=== PATIENT | male | born 1955 | race Caucasian/White ===

== ENCOUNTER 2021-05-09 17:31 | Emergency (ER) | payer BC, OTHER ==
[~2021-05-09] VITALS: Ht 170.2 cm; Wt 72.6 kg
[2021-05-09] MEDS ORDERED: SODIUM CHLORIDE 0.9% 1,000 ML IV ONE ×2 (19:15→21:30)
[2021-05-09] MEDS ORDERED: diphenhdrAMINE HCL 50 MG/1 ML VL IV ONE (19:15)
[2021-05-09] MEDS ORDERED: ACETAMINOPHEN 500 MG TAB PO ONE (19:15)
[2021-05-09] MEDS ORDERED: traMADol HCL 50 MG TAB PO ONE (19:15)
[2021-05-09] MEDS ORDERED: ONDANSETRON HCL 4 MG/2 ML VIAL IV ONE (19:15)
[2021-05-09] MEDS ORDERED: FAMOTIDINE (10MG/ML) 2ML VL IV ONE (19:15)
[2021-05-09 19:32] LABS: Basophils # (auto) 0 10 ^3/uL (0-0.2); Basophils % (auto) 0.3 % (0.0-2.0); Eosinophils # (auto) 0.1 10 ^3/uL (0-0.8); Eosinophils % (auto) 0.5 % (0.0-7.0); Hematocrit 46.2 % (41.0-53.0); Hemoglobin 16.3 g/dL (13.5-17.5); Lymphocytes # (auto) 2.8 10 ^3/uL (0.4-5.4); Lymphocytes % (auto) 22.2 % (10.0-50.0); Mean Corpuscular Hemoglobin 32.4 pg (28.0-32.0); Mean Corpuscular Hgb Conc. 35.3 g/dL (32.0-36.0); Monocytes # (auto) 1.1 10 ^3/uL (0-1.3); Monocytes % (auto) 8.9 % (0.0-12.0); Neutrophils # (auto) 8.5 10 ^3/uL (1.6-8.6); Neutrophils % (auto) 68.1 % (37.0-80.0); Nucleated Red Blood Cells % 0.5 %; Platelet Count (auto) 193 10^3/uL (140-450); Red Blood Cells 5.03 10^6/uL (4.5-5.90); Red Cell Distribution Width 13.3 % (11.8-14.3); White Blood Cell 12.5 10^3/uL (4.4-10.8)
[2021-05-09 19:48] LABS: Calcium 8.9 mg/dL (8.5-10.1); Magnesium 2.5 mg/dL (1.6-2.6); Potassium 4.5 mmol/L (3.5-5.1)
[2021-05-09 19:52] LABS: Bilirubin, Total 1.6 mg/dL (0.2-1.0); Total Protein 8.2 g/dL (6.4-8.2)
[2021-05-09 19:54] LABS: BUN/Creatinine Ratio 12.5
[2021-05-09] MEDS ORDERED: IOHEXOL 300 MG/ML 100ML BOTTLE IJ ONE (21:15)
[2021-05-09 22:13] LABS: Urine WBC None Seen /hpf (0 - 3)
[2021-05-09 22:26] LABS: Urine Bacteria NONE SEEN /hpf (None Seen); Urine Blood Negative /uL (Negative); Urine Specific Gravity 1.008 (1.001-1.035)
[2021-05-10] MEDS ORDERED: cefTRIAXone 1GM/50ML D5W 50 ML IV ONE (02:00)
[2021-05-10] MEDS ORDERED: diphenhdrAMINE HCL 50 MG/1 ML VL IV ONE (02:15)
[2021-05-10] MEDS ORDERED: traMADol HCL 50 MG TAB PO ONE (02:15)
[2021-05-10 02:29] VITALS: BP 120/81
== END 2021-05-10 02:45 | disposition short-term general hospital (02) ==
LOC: EDBD 17:31 → ER 17:31
DX: K35.80 Unspecified acute appendicitis (principal); K85.90 Acute pancreatitis without necrosis or infection, unspecified; J44.9 Chronic obstructive pulmonary disease, unspecified; E78.5 Hyperlipidemia, unspecified; I10 Essential (primary) hypertension; Z86.73 Personal history of transient ischemic attack (TIA), and cerebral infarction without residual deficits; Z88.8 Allergy status to other drugs, medicaments and biological substances
CPT/HCPCS: 36415; 74177; 80053; 81001; 83605; 83690; 83735; 84478; 85025; 85049; 93005; 96361; 96365; 96375; 96376; 99285; J0696; J1200; J2405; J3490; J7030; Q9967

== ENCOUNTER 2024-06-19 09:37 | Inpatient (IN) | payer BC, MEDICARE ==
[~2024-06-19] VITALS: Ht 170.2 cm; Wt 100.0 kg
[2024-06-19] MEDS: MECLIZINE HCL 25 MG TAB PO ONE (10:59)
[2024-06-19] MEDS: SODIUM CHLORIDE 0.9% 500 ML IVB ONE (11:00)
[2024-06-19 11:10] VITALS: PULSE 66; RESP 14; O2SAT 95
[2024-06-19 11:12] LABS: Basophils # (auto) 0 10 ^3/uL (0-0.2); Basophils % (auto) 0.2 % (0.0-2.0); Eosinophils # (auto) 0 10 ^3/uL (0-0.8); Eosinophils % (auto) 0.5 % (0.0-7.0); Hematocrit 47.2 % (41.0-53.0); Hemoglobin 16.4 g/dL (13.5-17.5); Lymphocytes # (auto) 2.5 10 ^3/uL (0.4-5.4); Lymphocytes % (auto) 26.3 % (10.0-50.0); Mean Corpuscular Hemoglobin 32.6 pg (28.0-32.0); Mean Corpuscular Hgb Conc. 34.7 g/dL (32.0-36.0); Mean Corpuscular Volume 93.9 fL (80.0-100.0); Monocytes # (auto) 0.6 10 ^3/uL (0-1.3); Monocytes % (auto) 6.6 % (0.0-12.0); Neutrophils # (auto) 6.2 10 ^3/uL (1.6-8.6); Neutrophils % (auto) 66.4 % (37.0-80.0); Platelet Count (auto) 196 10^3/uL (140-450); Red Blood Cells 5.03 10^6/uL (4.5-5.90); Red Cell Distribution Width 13.4 % (11.8-14.3); White Blood Cell 9.3 10^3/uL (4.4-10.8)
[2024-06-19 11:21] LABS: Alanine Aminotransferase 29 U/L (7-40); Albumin 4.4 g/dL (3.2-4.8); Alkaline Phosphatase 73 U/L (46-116); Anion Gap 8 (5-15); Aspartate Aminotransferase 22 U/L (13-40); BUN/Creatinine Ratio 13.2 (10.0-20.0); Bilirubin, Total 0.8 mg/dL (0.2-1.0); Blood Urea Nitrogen 10 mg/dL (9-23); Calcium 9.5 mg/dL (8.7-10.4); Carbon Dioxide 21 mmol/L (20-30); Chloride 107 mmol/L (98-107); Glucose 183 mg/dL (74-106); Lipase 350 U/L (12-53); Sodium 136 mmol/L (136-145); Total Protein 7.1 g/dL (5.7-8.2)
[2024-06-19] MEDS: SODIUM CHLORIDE 0.9% 500 ML IV ONE (12:00)
[2024-06-19] MEDS: PIPERACILLIN-TAZO 4.5GM 100 ML IV ONE (13:01)
[2024-06-19 14:23] LABS: LDL Cholesterol 143 mg/dL (< 100); Triglycerides 137 mg/dL (< 150)
[2024-06-19 14:25] LABS: Cholesterol 211 mg/dL (< 200); HDL Cholesterol 52 mg/dL (40-59)
[2024-06-19 14:38] LABS: Urine Bacteria None Seen /hpf (None Seen)
[2024-06-19 14:41] LABS: INR 1.05 (0.9-1.15); Partial Thromboplastin Time 25.4 SEC (24.5-34.5); Prothrombin Time 11.1 sec (9.3-11.8)
[2024-06-19 14:45] LABS: Urine Blood Negative /uL (Negative); Urine Clarity Clear (Clear); Urine Color Light-Yellow (Yellow); Urine Mucus FEW (None Seen); Urine Protein, UAD Negative (Negative); Urine Specific Gravity 1.022 (1.001-1.035); Urine Urobilinogen Normal (Negative); Urine WBC 2 /hpf (0 - 3)
[2024-06-19] MEDS ORDERED: hydrALAZINE HCL 20 MG/ML VL IV PRN (14:45)
[2024-06-19 15:32] LABS: Amphetamine Screen, Urine Neg (NEGATIVE); Barbiturate Scree,Urine Neg (NEGATIVE); Benzodiazephine Screen, Urine Neg (NEGATIVE); Cocaine Screen, Urine Neg (NEGATIVE); Opiate Scree,Urine Neg (NEGATIVE); Phencyclidine Screen, Urine Neg (NEGATIVE)
[2024-06-19 15:33] LABS: Cannabinoid Screen, Urine Neg (NEGATIVE)
[2024-06-19] MEDS: hydrALAZINE HCL 20 MG/ML VL IV ONE (16:29)
[2024-06-19 20:00] VITALS: PULSE 68
[2024-06-19] MEDS ORDERED: NITROGLYCERIN 0.4 MG SL TAB SL PRN (21:30)
[2024-06-19] MEDS ORDERED: ONDANSETRON HCL 4 MG/2 ML VIAL IV PRN (21:30)
[2024-06-19 21:49] VITALS: BP 172/95; PULSE 70; RESP 16; TEMP 98.6; O2SAT 99
[2024-06-19] MEDS: MORPHINE SULFATE INJ 2 MG/ml SYRG IV PRN ×2 (23:29→23:40)
[2024-06-19] MEDS: diphenhdrAMINE HCL 25 MG CAP PO ONE (23:29)
[2024-06-19] MEDS: ATORVASTATIN 20 MG TAB PO SCH (23:31)
[2024-06-19] MEDS: SOD CHL 0.45% 1,000 ML IV ONE (23:32)
[2024-06-19] MEDS: ASPirin 325 MG TAB PO ONE (23:32)
[2024-06-20 00:15] VITALS: PULSE 74; RESP 18; O2SAT 97
[2024-06-20] MEDS: ALBUTEROL SULF 2.5 MG/0.5ML(0.5%) NEB SOLN NEB SCH (00:15)
[2024-06-20] MEDS: IPRATROPIUM BROM 0.5 MG/2.5ML INH SOL NEB SCH (00:15)
[2024-06-20 00:25] VITALS: PULSE 71; RESP 16; O2SAT 100
[2024-06-20 04:47] LABS: Basophils # (auto) 0.1 10 ^3/uL (0-0.2); Basophils % (auto) 0.6 % (0.0-2.0); Eosinophils # (auto) 0 10 ^3/uL (0-0.8); Eosinophils % (auto) 0.4 % (0.0-7.0); Hematocrit 44.8 % (41.0-53.0); Hemoglobin 15.3 g/dL (13.5-17.5); Lymphocytes # (auto) 2.5 10 ^3/uL (0.4-5.4); Lymphocytes % (auto) 20.3 % (10.0-50.0); Mean Corpuscular Hgb Conc. 34.3 g/dL (32.0-36.0); Mean Corpuscular Volume 93.5 fL (80.0-100.0); Monocytes # (auto) 0.8 10 ^3/uL (0-1.3); Monocytes % (auto) 6.3 % (0.0-12.0); Neutrophils # (auto) 8.8 10 ^3/uL (1.6-8.6); Neutrophils % (auto) 72.4 % (37.0-80.0); Platelet Count (auto) 173 10^3/uL (140-450); Red Blood Cells 4.79 10^6/uL (4.5-5.90); Red Cell Distribution Width 13.3 % (11.8-14.3); White Blood Cell 12.1 10^3/uL (4.4-10.8)
[2024-06-20 05:03] LABS: INR 1.06 (0.9-1.15); Prothrombin Time 11.2 sec (9.3-11.8)
[2024-06-20 05:10] LABS: Alanine Aminotransferase 27 U/L (7-40); Alkaline Phosphatase 71 U/L (46-116); Anion Gap 9 (5-15); Aspartate Aminotransferase 20 U/L (13-40); BUN/Creatinine Ratio 15.9 (10.0-20.0); Bilirubin, Total 0.7 mg/dL (0.2-1.0); Blood Urea Nitrogen 10 mg/dL (9-23); Carbon Dioxide 23 mmol/L (20-30); Chloride 105 mmol/L (98-107); Glucose 106 mg/dL (74-106); Potassium 3.7 mmol/L (3.5-5.1); Sodium 137 mmol/L (136-145); Total Protein 6.5 g/dL (5.7-8.2)
[2024-06-20 05:55] VITALS: PULSE 71; RESP 13; O2SAT 98
[2024-06-20 06:00] VITALS: PULSE 74; RESP 16; O2SAT 100
[2024-06-20] MEDS: diphenhdrAMINE HCL 12.5 MG/5 ML UD PO PRN (09:31)
[2024-06-20 11:09] LABS: COVID19 ANTIGEN SOFIA FIA NEGATIVE (NEGATIVE)
[2024-06-20 14:26] VITALS: BP 134/77; PULSE 70; RESP 19; TEMP 98.1; O2SAT 98
== END 2024-06-20 14:32 | disposition home or self-care (01) | DRG 74 ==
LOC: ER 09:37 → EDBD 09:37 → TELE 21:23
PROVIDERS: ADMIT Internal Medicine; ATTEND Internal Medicine
DX: G90.8 Other disorders of autonomic nervous system (principal); I10 Essential (primary) hypertension; J44.9 Chronic obstructive pulmonary disease, unspecified; E78.5 Hyperlipidemia, unspecified; E66.9 Obesity, unspecified; Z20.822 Contact with and (suspected) exposure to COVID-19; Z86.73 Personal history of transient ischemic attack (TIA), and cerebral infarction without residual deficits; Z68.34 Body mass index [BMI] 34.0-34.9, adult; Z88.8 Allergy status to other drugs, medicaments and biological substances
CPT/HCPCS: 36415; 70450; 70551; 71045; 74176; 80053; 80061; 80307; 81001; 83036; 83690; 83880; 84443; 84484; 85025; 85610; 85730; 87426; 93005; 93306; 94640; G0378; J2543

== ENCOUNTER 2024-08-25 06:55 | Day surgery (SDC) | payer BC, MEDICARE ==
[~2024-08-25] VITALS: Ht 170.2 cm; Wt 95.3 kg
[~2024-08-25 06:55] MED LIST: BUDE0.253 IN; VALS1TAB56 PO
[2024-08-25] MEDS ORDERED: PROPOFOL 10 MG/ML 20 ML IV ONE (07:25)
[2024-08-25] MEDS ORDERED: fentaNYL CITRATE 100 MCG/2 ML VL ONE (07:26)
[2024-08-25 09:16] VITALS: TEMP 97.6; O2SAT 97
[2024-08-25 09:46] VITALS: BP 138/88; PULSE 68; RESP 20; O2SAT 96
== END 2024-08-25 10:00 | disposition home or self-care (01) ==
LOC: GI 06:55
PROVIDERS: ATTEND Internal Medicine Gastroenterology
DX: R74.8 Abnormal levels of other serum enzymes (principal); K29.50 Unspecified chronic gastritis without bleeding; J44.9 Chronic obstructive pulmonary disease, unspecified; I10 Essential (primary) hypertension; E78.5 Hyperlipidemia, unspecified; Z98.890 Other specified postprocedural states; Z79.899 Other long term (current) drug therapy; Z88.8 Allergy status to other drugs, medicaments and biological substances
CPT/HCPCS: 43239; 88305; 88312; 88342; J2704; J3010; J7030